=== PATIENT | male | born 1980 | race Caucasian/White ===

== ENCOUNTER 2017-09-28 06:18 | Day surgery (SDC) | payer OTHER ==
[2017-09-20 11:50] VITALS: BMI 30.9
[2017-09-28] MEDS ORDERED: SUCCINYLCHOLINE CHLORIDE 200 MG/10 ML VIAL ONE (06:57)
[2017-09-28] MEDS ORDERED: ePHEDrine SULFATE 50 MG/1 ML AMPULE ONE (06:57)
[2017-09-28] MEDS ORDERED: ONDANSETRON 4 MG/2 ML VIAL ONE (06:57)
[2017-09-28] MEDS ORDERED: LIDOCAINE HCL/PF 2% SDV 5ML VIAL ONE (06:57)
[2017-09-28] MEDS ORDERED: PROPOFOL 20 ML ONE ×4 (06:57→07:50)
[2017-09-28] MEDS ORDERED: MIDAZOLAM HCL 2 MG/2 ML SINGLE DOSE VIAL ONE (06:57)
[2017-09-28] MEDS ORDERED: DEXAMETHASONE SOD PHOSPHATE 4 MG/1 ML VIAL ONE (06:57)
[2017-09-28] MEDS ORDERED: PHENYLEPHRINE HCL 10 MG/1 ML SINGLE DOSE VIAL ONE (06:57)
[2017-09-28] MEDS ORDERED: fentaNYL CITRATE 250 MCG/5 ML VIAL ONE (06:57)
[2017-09-28] MEDS ORDERED: BUPIVACAINE HCL/EPINEPHRINE/PF 30 ML VIAL IJ ONE (07:03)
[2017-09-28] MEDS ORDERED: SODIUM CHLORIDE 0.9% P/F 10 ML VIAL IJ ONE (07:07)
--- NOTE | 2017-09-28 08:35 | DS ---
Physical Examination Vital Signs: Vital Signs Temperature 97.8 F 09/28/17 07:17 Pulse Rate 61 09/28/17 07:17 Respiratory Rate 18 09/28/17 07:17 Blood Pressure 102/63 09/28/17 07:17 O2 Sat by Pulse Oximetry (%) Discharge Summary Reason For Visit: MEDIAL MENISCAL TEAR, RIGHT KNEE Condition: Good - Instructions Diet, Activity, Other Instructions: Post Operative Instructions: Knee Arthroscopy Dr Lorenzo Gordon 1. Pain following an arthroscopy is variable. Some patients will have more pain than others. You have been provided with a prescription for medication that contains a narcotic. You are not allowed to drive while on this medication. You should NOT take Tylenol (Acetaminophen) when taking the pain medication ( it will result in an overdose). Feel free to take medications such as Ibuprofen or Naprosyn in addition to the pain medicine if you do not have any problems with the NSAID class of medications. 2. You should are allowed to remove the bandages and shower in 24 hours unless directed otherwise. You are not allowed to bathe or go swimming until the sutures are removed. Put band-aids on the sutures after your shower and do not put any creams or lotions over the incisions. 3. You are allowed to put 50% of your weight on the leg for 2 weeks. You may bend your knee. 4. Apply ice to the knee for 15 min every hour or so. You may continue this for as many days as you like. 5. Please call the office to schedule a visit to have your sutures removed. 6. If for any reason you believe you may have an infection or are concerned, please feel free to call me. I can be reached through our office number 24 hours a day. 7. Please call our office with any questions; we will review the surgical findings during your post operative visit. Disposition: HOME - Home Medications Comprehensive Discharge Medication List: Ambulatory Orders Amoxicillin/Potassium Clav [Amox-Clav 875-125 mg Tablet] 1 each PO BID 09/20/17
--- NOTE | 2017-09-28 08:35 | OP ---
Operative Note - Note: Operative Date: 09/28/17 Pre-Operative Diagnosis: right knee MMT Operation: Right knee MMR Post-Operative Diagnosis: Same as Pre-op Surgeon: Lorenzo Gordon Anesthesia: General Operative Report Dictated: Yes
[2017-09-28 09:52] VITALS: BP 102/71; PULSE 64
[2017-09-28 09:55] VITALS: TEMP 98
--- NOTE | 2017-10-02 12:00 | PATH ---
Surgical Pathology Report Patient Name: NORBERTO FRANCO Med. Rec. #: [id number] /Age/Gender: 1980 (Age: 37) / M Account: [id number] Location: [facility] Taken: 09/28/2017 Received: 09/28/2017 Reported: 10/02/2017 Physicians: Lorenzo Gordon M.D. Specimen(s) Received RIGHT KNEE SHAVINGS Clinical History Medial meniscal tear right knee Final Diagnosis KNEE, RIGHT, ARTHROSCOPIC SHAVING: FIBROCARTILAGE WITH MYXOID DEGENERATIVE CHANGES, ALONG WITH PORTIONS OF SYNOVIUM AND HYALINE CARTILAGE. Electronically Signed Norberto Lagunas M.D. Gross Description Received in formalin, labeled "right knee shavings," is a 3.4 x 3.0 x 0.3 cm. aggregate of garcia-yellow soft tissue fragments. A phlebotomy services representative portion is submitted in one cassette. 09/28/201709/28/2017
== END 2017-09-28 09:45 | disposition home or self-care (01) ==
LOC: FASU 06:18
PROVIDERS: ATTEND Orthopaedic Surgery
PROC: 0SBC4ZZ Excision of Right Knee Joint, Percutaneous Endoscopic Approach (ICD-10-PCS; principal; 2017-09-28 08:05)
DX: S83.241A Other tear of medial meniscus, current injury, right knee, initial encounter (principal); X58.XXXA Exposure to other specified factors, initial encounter; Y93.9 Activity, unspecified; Y92.9 Unspecified place or not applicable
CPT/HCPCS: 88304-TC